=== PATIENT | female | born 1955 | race Caucasian/White ===

== ENCOUNTER 2016-03-25 23:35 | Emergency (ER) | payer OTHER ==
--- NOTE | 2016-03-26 00:08 | PROVIDER DOCUMENTATION ---
HPI-General Adult - General Chief Complaint: Flu Symptoms Stated Complaint: FLU LIKE SX Time Seen by Provider: 03/25/16 23:37 Source: patient Allergies/Adverse Reactions: Patient Allergies Allergy/AdvReac Type Severity Reaction Status Date / Time Corticosteroids Allergy Severe DIZZINESS Verified 09/02/15 12:31 (Glucocorticoids) codeine [Codeine] AdvReac Mild NAUSEA Verified 09/02/15 12:31 Home Medications: Metformin [Glucophage] 500 mg PO BID CC 03/24/14 Gabapentin 100 mg PO DAILY 09/02/15 Hydrochlorothiazide 12.5 mg PO DAILY 09/02/15 Trazodone [Desyrel] 100 mg PO QHS 09/02/15 - History of Present Illness -Gen Adult Nature of Presenting Problems: 61 y/o WF presents to the ED with body aches, headache and vomiting that began yesterday. Pt states she vomited 2 times yesterday and 2 today. Location of Pain/Injury: reports: head, generalized (body aches) Pain Radiation: reports: no radiation Quality of Pain: reports: aching Severity: reports: mild, moderate Onset/Duration: reports: 24 hours ago Timing: reports: still present Modifying Factors: improves with: nothing Associated Symptoms: reports: nausea, vomiting. denies: cough, diaphoresis, diarrhea, fever/chills, sinus congestion/drainage Similar Symptoms Previously?: No Recently seen or treated by another doctor?: Yes Review of Systems - Adult - REVIEW OF SYSTEMS - ADULT Constitutional: denies: chills, fever Eyes: reports: no symptoms reported Ears, Nose, Mouth & Throat: denies: ear pain, sinus problem, throat pain Cardiovascular: reports: no symptoms reported Respiratory: reports: no symptoms reported Gastrointestinal: reports: nausea, vomiting. denies: abdominal pain Genitourinary: reports: no symptoms reported Musculoskeletal: reports: muscle aches. denies: back pain, joint pain, neck pain Integumentary: reports: no symptoms reported Neurological: reports: no symptoms reported Psychiatric: reports: no symptoms reported Endocrine: reports: no symptoms reported Hematologic/Lymphatic: reports: no symptoms reported Allergic/Immunologic: reports: no symptoms reported All Other Systems: Reviewed and Negative Past History - Adult - PAST MEDICAL HISTORY-ADULT Review of Records: reports: Old Records Reviewed, Nursing Assessment Review, Medications Reviewed Major Childhood Illnesses: reports: denies history Cardiovascular: reports: HTN Respiratory: reports: denies history Gastrointestinal: reports: IBS Obstetrical/Gynecological: reports: other (P 4 G 5) Genitourinary: reports: denies history Musculoskeletal: reports: fibromyalgia Neurological: reports: denies history Psychiatric: reports: anxiety, depression Endocrine/Immune: reports: Diabetes Other Conditions: reports: denies history - PRIOR SURGERIES/PROCEDURES Surgical/Procedure History: reports: hysterectomy, , other (no recent) - IMMUNIZATION STATUS Childhood Immunizations: See Nurse Assessment Flu Vaccine: See Nurse Assessment - FAMILY HISTORY Family History: reviewed, not pertinent - SOCIAL HISTORY Smoking: non-smoker Living Situation: family Physical Exam-General - PHYSICAL EXAM-ADULT Initial Vital Signs Reviewed: Yes - CONSTITUTIONAL General Appearance: appears well, alert, no apparent distress - EYES Eyes: PERRL/EOMI, pink conjunctivae - HEAD, EARS, NOSE, MOUTH & THROAT HENMT: moist mucous membranes, normal ENT inspection, TMs normal, pharynx normal - NECK Neck: non-tender, full range of motion, supple, normal inspection - RESPIRATORY Respiratory: lungs clear, normal breath sounds - CARDIOVASCULAR Cardiovascular: normal peripheral pulses, regular rate, rhythm - GASTROINTESTINAL (ABDOMEN) Abdominal Exam: normal bowel sounds, non tender, soft - MUSCULOSKELETAL Back Exam: normal inspection, no CVA tenderness, no vertebral tenderness Extremity: normal range of motion, non-tender, normal gait, normal inspection - SKIN Integumentary: normal color, normal turgor, warm/dry - NEUROLOGIC Neurologic: grossly normal, no motor/sensory deficits - PSYCHIATRIC Psych/Mental Status: normal mood/affect, normal thought content, normal thought process, oriented x 3 Progress - PLAN OF CARE/RESULTS Progress/Plan/Lab Results: Orders Category Date Time Status CBC WITH DIFF [HEME] Stat Lab 03/26/16 00:05 Completed Flu [INFLUENZA SCREEN PL] Stat Lab 03/25/16 23:45 Completed Vital Signs Temp Pulse Resp BP Pulse Ox 03/26/16 01:03 98.3 F 63 18 137/082 96 03/25/16 23:42 97.1 F L 79 18 149/075 98 Corticosteroids (Glucocorticoids) Allergy (Severe, Verified 09/02/15 12:31) DIZZINESS STEROIDS-PT RECEIVED SHOT OF STEROIDS . HAD BAD RXN COULD NOT REMEMBER SPECIFIC STEROID codeine [Codeine] Adverse Reaction (Mild, Verified 09/02/15 12:31) NAUSEA Metformin [Glucophage] 500 mg PO BID CC 03/24/14 Naproxen [Naprosyn] 375 mg PO BID PRN PRN #30 tablet 08/05/14 Paroxetine [Paxil] 60 mg PO DAILY #0 tablet 08/24/14 Spironolactone [Aldactone] 25 mg PO DAILY #30 tablet 09/25/14 Amlodipine [Norvasc] 10 mg PO DAILY #30 tablet 11/28/14 Lisinopril 20 mg PO DAILY #30 tablet 11/28/14 Hydrocodone/Acetaminophen [Slater 5-325 Tablet] 1 each PO Q4-6H PRN PRN #20 tablet 07/13/15 Gabapentin 100 mg PO DAILY 09/02/15 Hydrochlorothiazide 12.5 mg PO DAILY 09/02/15 Promethazine [Phenergan] 25 mg PO Q6H PRN PRN #20 tablet 09/02/15 Trazodone [Desyrel] 100 mg PO QHS 09/02/15 Fluconazole [Diflucan] 150 mg PO DAILY #2 tablet 12/08/15 Nystatin Cream [Mycostatin Cream] 1 applicatn TOP TID #1 tube 12/08/15 Promethazine [Phenergan] 1 tab PO Q6H PRN PRN #18 tablet 03/26/16 Laboratory 03/26/16 03/25/16 00:05 23:45 WBC 10.49 RBC 4.52 Hgb 14.1 Hct 41.6 MCV 92.0 MCH 31.2 H MCHC 33.9 RDW Std Deviation 12.0 Plt Count 234 MPV 9.7 Immature Gran % (Auto) 0.3 Neut % (Auto) 54.5 Lymph % (Auto) 35.3 Giles % (Auto) 7.3 Eos % (Auto) 2.2 Baso % (Auto) 0.4 Immature Gran # (Auto) 0.03 Neut # (Auto) 5.72 Lymph # (Auto) 3.70 H Giles # (Auto) 0.77 H Eos # (Auto) 0.23 Baso # (Auto) 0.04 Influenza A (Rapid) NEGATIVE Influenza B (Rapid) NEGATIVE Departure - Departure Time of Disposition Order: 01:04 DIAGNOSIS: URI (upper respiratory infection) Qualifiers: URI type: unspecified URI Qualified Code(s): J06.9 - Acute upper respiratory infection, unspecified Nausea & vomiting Qualifiers: Vomiting type: unspecified Vomiting Intractability: non-intractable Qualified Code(s): R11.2 - Nausea with vomiting, unspecified Disposition: HOME 01 Certified Medical Emergency: Emergent Condition: Stable Additional Instructions: ED Follow Up Instructions: You have been treated by a care provider in the Emergency Department. These instructions are being provided to you so you can have an understanding of how to care for yourself upon discharge. Upon discharge from the Emergency Department, you are responsible for making arrangements for follow-up care by a physician of your choice. Take all prescribed medications as directed. Return to the Emergency Department immediately for any new or worsening symptoms. You may call the Physician Referral phone number at [phone] to obtain a list of Physicians who are taking new patients. Prescriptions: Promethazine [Phenergan] 1 tab PO Q6H PRN PRN #18 tablet PRN Reason: Vomiting Attestation - Scribe Verification/Attestation Scribe:: Jose Nelson Acting as Scribe for:: Arias Blanchard Scribe documention review:: This chart was documented by a scribe and accurately reflects the service the provider performed and the decisions made by the provider.
[2016-03-26 00:39] LABS: MANUAL DIFF NEEDED? NO
[2016-03-26 00:43] LABS: BASO% 0.4 % (0.0-0.8); EOS# 0.23 X1000 (0.0-0.7); EOS% 2.2 % (0.0-10.0); HEMATOCRIT 41.6 % (37.0-47.0); HEMOGLOBIN 14.1 g/dL (12.0-16.0); IMM GRAN# 0.03 X1000 (0.0-0.04); IMM GRAN% 0.3 % (0.0-0.5); LYMPH% 35.3 % (20.5-51.1); MCH 31.2 PG (27-31); MCHC 33.9 g/dL (33-37); MONO# 0.77 X1000 (0.11-0.59); MONO% 7.3 % (1.7-9.3); MPV 9.7 FL (7.4-10.4); NEUT% 54.5 % (42.2-75.2); PLT 234 X1000 (130-400); RBC 4.52 XMIL (4.2-5.4)
[2016-03-26 01:04] VITALS: BP 137/082
[2016-03-26] MEDS ORDERED: PHENERGAN PO ONE (01:18)
[2016-03-26] MEDS ORDERED: PHENERGAN ONE (01:19)
== END 2016-03-26 01:30 | disposition home or self-care (01) ==
LOC: P.ED 23:35
DX: J06.9 Acute upper respiratory infection, unspecified (principal); R11.2 Nausea with vomiting, unspecified; M79.1 Myalgia; R51 Headache; I10 Essential (primary) hypertension; M79.7 Fibromyalgia; E11.9 Type 2 diabetes mellitus without complications; F41.9 Anxiety disorder, unspecified; F32.9 Major depressive disorder, single episode, unspecified; Z79.899 Other long term (current) drug therapy
CPT/HCPCS: 85025; 87804; 99283